=== PATIENT | male | born 1960 | race African-American/Black ===

== ENCOUNTER 2017-10-12 16:13 | Emergency (ER) | payer MEDICAID ==
[~2017-10-12] VITALS: Ht 172.7 cm; Wt 70.7 kg
[2017-10-12] MEDS ORDERED: FLUORESCEIN OPHTHALMIC 1 MG STRIP EACHEYE ONE (16:30)
[2017-10-12] MEDS ORDERED: OXYcodone/APAP 5/325MG TABLET PO ONE (16:30)
[2017-10-12] MEDS ORDERED: ONDANSETRON ODT 4 MG PO ONE (16:30)
[2017-10-12] MEDS ORDERED: PROPARACAINE OPHTH 0.5%, 15ML EACHEYE ONE (16:30)
[2017-10-12] MEDS ORDERED: ONDANSETRON ODT 4 MG ONE (16:32)
[2017-10-12] MEDS ORDERED: OXYcodone/APAP 5/325MG TABLET ONE (16:32)
[2017-10-12] MEDS ORDERED: PROPARACAINE OPHTH 0.5%, 15ML ONE (16:33)
[2017-10-12] MEDS ORDERED: IBUPROFEN 200 MG TABLET PO ONE (17:00)
[2017-10-12 19:10] VITALS: BP 129/74
== END 2017-10-12 19:26 | disposition home or self-care (01) ==
LOC: ED 19:22
DX: H10.31 Unspecified acute conjunctivitis, right eye (principal); H20.041 Secondary noninfectious iridocyclitis, right eye; F17.200 Nicotine dependence, unspecified, uncomplicated
CPT/HCPCS: 70480; 99284